=== PATIENT | female | born 1960 | race Caucasian/White ===

== ENCOUNTER → 2020-04-23 | Outpatient (CLI) | payer OTHER ==
[~2020-04-23] MED LIST: REGADENOSON 0.4 MG/5 ML SYRINGE IV ONE
--- NOTE | 2020-04-23 10:56 | ECHOF ---
Referral Reason:R94.31 Abn EKG MEASUREMENTS -------- HEIGHT: 154.9 cm WEIGHT: 82.6 kg BP: 145/83 RVIDd: 2.8 cm (< 3.3) IVSd: 1.1 cm (0.6 - 1.1) LVIDd: 4.0 cm (3.9 - 5.3) LVPWd: 1.1 cm (0.6 - 1.1) IVSs: 1.6 cm LVIDs: 2.7 cm LVPWs: 1.5 cm LA Diam: 2.9 cm (2.7 - 3.8) LAESV Index (A-L): 15.22 ml/m Ao Diam: 3.3 cm (2.0 - 3.7) AV Cusp: 2.0 cm (1.5 - 2.6) MV EXCURSION: 19.523 mm (> 18.000) MV EF SLOPE: 69 mm/s (70 - 150) EPSS: 0.7 cm MV E Tre: 0.58 m/s MV DecT: 370 ms MV A Tre: 0.69 m/s MV E/A Ratio: 0.85 RAP: 5.00 mmHg RVSP: 25.57 mmHg FINDINGS -------- Sinus rhythm. This was a technically adequate study. The left ventricular size is normal. There is borderline concentric left ventricular hypertrophy. Overall left ventricular systolic function is normal with, an EF between 60 - 65 %. The right ventricle is normal in size. Normal LA size by volume 22+/-6 ml/m2. The right atrium is normal in size. Interatrial and interventricular septum intact. The aortic valve is trileaflet and appears structurally normal. The mitral valve is normal. There is trace mitral regurgitation. Mild tricuspid regurgitation present. Right ventricular systolic pressure is normal at < 35 mmHg. Trace/mild (physiologic) pulmonic regurgitation. The aortic root size is normal. Normal inferior vena cava with normal inspiratory collapse consistent with estimated right atrial pre ssure of 5 mmHg. There is no pericardial effusion. CONCLUSIONS -------- 1. Sinus rhythm. 2. The left ventricular size is normal. 3. There is borderline concentric left ventricular hypertrophy. 4. Overall left ventricular systolic function is normal with, an EF between 60 - 65 %. 5. The aortic valve is trileaflet and appears structurally normal. 6. There is trace mitral regurgitation. 7. Mild tricuspid regurgitation present. 8. Right ventricular systolic pressure is normal at < 35 mmHg. 9. Trace/mild (physiologic) pulmonic regurgitation. 10. There is no pericardial effusion. SURFACE WATER TECHNICIAN: Vanna Nicole RDCS
--- NOTE | 2020-04-23 11:54 | P.STRESS ---
- Stress Test Note Stress Test Results/Findings: Exam Performed: NM stress lexiscan cardiolite Exam Date: 04/23/20 Reason for Exam: ABN ECG Height: 5 ft 1 in Weight: 83 kg Protocol: LEXISCAN CARDIOLITE Stage: NA Duration of Exercise: NA Resting Heart Rate: 63 Resting Blood Pressure: 130/85 Maximum Achieved Heart Rate: 95 Maximum Achieved Blood Pressure: 130/85 85% PMHR: 135 100% PMHR: 159 METS: NA Technologist Comment: Stress Test Results/Findings: This is a 60-year-old female with history of hypertension, hypercholesterolemia and smoking history and also COPD being evaluated for cardiac status. Stress data: Blood pressure at rest is 130/85 with pulse rate of 63. EKG at rest showed sinus rhythm without any acute ST-T changes. A standard dose of Lexiscan was infused. EKG did not reveal any significant changes from baseline. Final impression: #1. Negative Lexiscan stress test #2. Report of an echo images to be given by the radiologist.
--- NOTE | 2020-04-23 15:28 | NM ---
EXAMINATION TYPE: NM stress lexiscan cardiolite DATE OF EXAM: 04/23/2020 COMPARISON: NONE HISTORY: 60-year-old female R94.31, abnormal EKG TECHNIQUE: After the intravenous administration of 9.86 mCi Tc 99m Sestamibi - Cardiolite resting SP ECT images acquired 55 minutes post injection. The patient received 0.4mg Lexiscan, 25.2 mCi Tc 99m Sestamibi - Stress images obtained [address] injection FINDINGS: Review of stress and rest SPECT images demonstrates prominent GI activity along the inferior wall. Th ere is decreased perfusion at the apex on rest images suggesting attenuation artifact. No discrete re versibility is identified. Gated analysis shows normal wall motion with an estimated left ventricular ejection fraction of 69 %.TID is calculated at 0.84, within normal limits. IMPRESSION: No scintigraphic evidence for reversible ischemia. Some limitations due to prominent adjacent GI keri fact along the inferior wall.
== END | disposition home or self-care (01) ==
LOC: RADNMMAIN 08:08
PROVIDERS: ATTEND Family Medicine
DX: R94.31 Abnormal electrocardiogram [ECG] [EKG] (principal)
CPT/HCPCS: 93017; 93306; 78452; A9500; J2785

== ENCOUNTER 2020-12-26 18:15 | Emergency (ER) | payer OTHER ==
[2020-12-26 18:55] VITALS: RESP 18
--- NOTE | 2020-12-26 19:18 | XR ---
EXAMINATION TYPE: XR chest 2V DATE OF EXAM: 12/26/2020 COMPARISON: NONE HISTORY: Cough and fever. TECHNIQUE: Frontal and lateral views of the chest are obtained. FINDINGS: There is retrocardiac opacity, compatible with hiatal hernia. There is additional mild lef t basilar opacity. No pleural effusion, or pneumothorax seen. The cardiac silhouette size is within normal limits. The osseous structures are intact. IMPRESSION: Mild bibasilar atelectasis versus infiltrates.
[2020-12-26] MEDS ORDERED: ACETAMINOPHEN TAB 500 MG TAB PO STA (19:56)
[2020-12-26] MEDS ORDERED: dexAMETHasone 4 MG TAB PO STA (20:08)
--- NOTE | 2020-12-26 20:09 | ED ---
General Adult HPI - General Chief complaint: Fever Stated complaint: COUGH AND SOB Time Seen by Provider: 12/26/20 19:55 Source: patient Mode of arrival: ambulatory Limitations: no limitations - History of Present Illness Initial comments: Dictation was produced using [employer] dictation software. please excuse any grammatical, word or spelling errors. This patient was cared for during a federal and state declared state of emergency secondary to Covid 19 Chief Complaint: 60-year-old female past medical history of COPD presents with on and off fever, bodyaches and shortness of breath. History of Present Illness: This 60-year-old female she states she has a past medical history of COPD. She states that for the last 2 weeks she's been having on and off symptoms of fever, myalgias and shortness of breath. She states that she does not know if she was in close contact with anybody with Covid 19. Patient has a history of blood clots. She does have inhalers for her COPD. She was at home with her fianc. The ROS documented in this emergency department record has been reviewed and confirmed by me. Those systems with pertinent positive or negative responses have been documented in the HPI. All other systems are other negative and/or noncontributory. PHYSICAL EXAM: General Impression: Alert and oriented x3, not in acute distress HEENT: Normocephalic atraumatic, extra-ocular movements intact, pupils equal and reactive to light bilaterally, mucous membranes moist. Cardiovascular: Heart regular rate and rhythm Chest: Able to complete full sentences, no retractions, no tachypnea, clear to auscultation bilaterally Abdomen: abdomen soft, non-tender, non-distended, no organomegaly Musculoskeletal: Pulses present and equal in all extremities, no peripheral edema Motor: no focal deficits noted Neurological: CN II-XII grossly intact, no focal motor or sensory deficits noted Skin: Intact with no visualized rashes Psych: Normal affect and mood ED course: 60-year-old female presents with symptoms suspicious for Covid 19. Covid 19 test is positive. Vital signs upon arrival shows tachycardia 102.9. Rest of vital signs within acceptable limits. She is not hypoxic. She does not have any physical exam findings to suggest COPD exacerbation. Patient is a symptomatically for more than 10 days. She does not qualify for monoclonal antibody infusion. Chest x-ray shows mild bibasilar atelectasis versus infiltrates. Laboratory evaluation obtained. CBC, blood panel is unremarkable. Patient's was observed in emergency department for 3 hours. She continues to be non- hypoxic. Patient told to quarantine at home. Return parameters discussed. History of COPD patient was given 10 mg of oral Decadron. - Related Data Allergies Allergy/AdvReac Type Severity Reaction Status Date / Time amoxicillin Allergy Rash/Hives Verified 12/26/20 18:55 Review of Systems ROS Statement: Those systems with pertinent positive or pertinent negative responses have been documented in the HPI. ROS Other: All systems not noted in ROS Statement are negative. Past Medical History Past Medical History: COPD History of Any Multi-Drug Resistant Organisms: None Reported Past Surgical History: Cholecystectomy, Hysterectomy Smoking Status: Former smoker Past Alcohol Use History: None Reported Past Drug Use History: None Reported General Exam Limitations: no limitations Course Vital Signs 12/26/20 12/26/20 12/26/20 18:49 20:54 21:04 Temperature 102.9 F H 102.7 F H Pulse Rate 99 84 Respiratory 18 18 18 Rate Blood Pressure 119/82 129/72 O2 Sat by Pulse 97 94 L Oximetry Medical Decision Making - Lab Data Result diagrams: 12/26/20 20:27 12/26/20 20:27 Lab Results 12/26/20 12/26/20 12/26/20 Range/Units 18:59 20:27 20:27 WBC 3.0 L (3.8-10.6) k/uL RBC 4.86 (3.80-5.40) m/uL Hgb 15.3 (11.4-16.0) gm/dL Hct 44.5 (34.0-46.0) % MCV 91.6 (80.0-100.0) fL MCH 31.5 (25.0-35.0) pg MCHC 34.4 (31.0-37.0) g/dL RDW 12.2 (11.5-15.5) % Plt Count 222 (150-450) k/uL MPV 7.4 Neutrophils % 50 % Lymphocytes % 37 % Monocytes % 10 % Eosinophils % 0 % Basophils % 1 % Neutrophils # 1.5 (1.3-7.7) k/uL Lymphocytes # 1.1 (1.0-4.8) k/uL Monocytes # 0.3 (0-1.0) k/uL Eosinophils # 0.0 (0-0.7) k/uL Basophils # 0.0 (0-0.2) k/uL Sodium 132 L (137-145) mmol/L Potassium 3.8 (3.5-5.1) mmol/L Chloride 98 (98-107) mmol/L Carbon Dioxide 26 (22-30) mmol/L Anion Gap 8 mmol/L BUN 14 (7-17) mg/dL Creatinine 0.91 (0.52-1.04) mg/dL Est GFR (CKD-EPI)AfAm 79 (>60 ml/min/1.73 sqM) Est GFR (CKD-EPI)NonAf 68 (>60 ml/min/1.73 sqM) Glucose 111 H (74-99) mg/dL Calcium 8.4 (8.4-10.2) mg/dL Total Bilirubin 0.4 (0.2-1.3) mg/dL AST 37 H (14-36) U/L ALT 19 (4-34) U/L Alkaline Phosphatase 59 (38-126) U/L Total Protein 6.7 (6.3-8.2) g/dL Albumin 3.8 (3.5-5.0) g/dL Coronavirus (PCR) Detected A (Not Detectd) Disposition Clinical Impression: COVID-19 Disposition: HOME SELF-CARE Condition: Fair Instructions (If sedation given, give patient instructions): Viral Pneumonia (ED) Additional Instructions: Today you were evaluated for symptoms consistent with upper respiratory infection. Today you tested positive for Covid 19. Your are stable for discharge, however it is instructed to to seek immediate medical attention especially if you develop worsening symptoms especially respiratory distress. If possible, try to obtain a pulse oximeter and monitor your oxygen at home. In the meantime please remain in quarantine for 14 days. For any other questions please contact Ramana for here in emergency department or [facility] Department at [phone] Is patient prescribed a controlled substance at d/c from ED?: No Referrals: Kermit Trinidad MD [Primary Care Provider] - 1-2 days Time of Disposition: 21:17
[2020-12-26 20:45] LABS: Basophils % (A) 1 %; Eosinophils % (A) 0 %; HCT 44.5 % (34.0-46.0); HGB 15.3 gm/dL (11.4-16.0); Lymphocytes # (A) 1.1 k/uL (1.0-4.8); Lymphocytes % (A) 37 %; MCH 31.5 pg (25.0-35.0); MCHC 34.4 g/dL (31.0-37.0); MCV 91.6 fL (80.0-100.0); Mean Platelet Volume 7.4; Monocytes # (A) 0.3 k/uL (0-1.0); Monocytes % (A) 10 %; Neutrophils # (A) 1.5 k/uL (1.3-7.7); Neutrophils % (A) 50 %; Platelet Count 222 k/uL (150-450); RBC 4.86 m/uL (3.80-5.40); RDW 12.2 % (11.5-15.5)
[2020-12-26 21:10] LABS: Albumin 3.8 g/dL (3.5-5.0); Calcium 8.4 mg/dL (8.4-10.2); Potassium 3.8 mmol/L (3.5-5.1); Total Bilirubin 0.4 mg/dL (0.2-1.3); Total Protein 6.7 g/dL (6.3-8.2)
[2020-12-26 22:21] VITALS: BP 126/78; PULSE 82; TEMP 102
== END 2020-12-26 22:21 | disposition home or self-care (01) ==
LOC: EC 18:15
DX: U07.1 COVID-19 (principal); J44.9 Chronic obstructive pulmonary disease, unspecified; Z87.891 Personal history of nicotine dependence; Z86.718 Personal history of other venous thrombosis and embolism
CPT/HCPCS: 36415; 80053; 85025; 87635; 71046; 99285; J8540

== ENCOUNTER 2021-01-28 09:23 | Day surgery (SDC) | payer OTHER ==
[2021-01-26 10:43] VITALS: BMI 33.0
[~2021-01-28 09:23] MED LIST changes: +LACTATED RINGERS 1,000 ML IV SCH; -REGADENOSON 0.4 MG/5 ML SYRINGE IV ONE
[2021-01-28 09:59] VITALS: RESP 16; TEMP 96.7
[2021-01-28 10:11] LABS: Glucose,Whole Blood 98 mg/dL (75-99)
[2021-01-28] MEDS ORDERED: LACTATED RINGERS 1,000 ML IV ONE (10:15)
[2021-01-28] MEDS ORDERED: PROPOFOL 10 MG/ML 20 ML VIAL IV ONE (10:32)
--- NOTE | 2021-01-28 11:08 | P.PCN ---
Date of Procedure: 01/28/21 Procedure(s) Performed: BRIEF HISTORY: Patient is a 61-year-old, pleasant, white female scheduled for an upper endoscopy as a part of evaluation of dysphagia to solids for the last several months duration. She has liquid and solid food dysphagia. She denies any weight loss. She has long-standing history of GERD and is on Prilosec 20 mg. PROCEDURE PERFORMED: Esophagogastroduodenoscopy with biopsy. PREOPERATIVE DIAGNOSIS: Progressive dysphagia to solids and liquids of several months duration. IV sedation per anesthesia. PROCEDURE: After informed consent was obtained, the patient was brought into the endoscopy unit. IV sedation was administered by Anesthesia under continuous monitoring. Initially the Olympus GIF-140 video endoscope was inserted into the mouth. Esophagus intubated without any difficulty. It was gradually advanced into the stomach and duodenum and carefully examined. The bulb and the second part of the duodenum appeared normal. The scope at this time was withdrawn to the stomach, adequately insufflated with air, and upon careful examination, mucosa of the antrum, body, cardia and the fundus appeared normal. The scope was then withdrawn into the esophagus. The GE junction was located at 39 cm from the incisors. The esophagus appeared dilated with large amount of retained food noted in the distal esophagus. The esophagus was very tortuous dilated with retained food. The GE junction was somewhat angulated but appeared tight suspicious for esophageal achalasia. The mucosa of the esophagus also had some erosions and biopsies were done from this area. The proximal esophagus appeared normal and the patient tolerated the procedure IMPRESSION: 1. Dilated tortuous esophagus with retained food in in the esophagus and a tight GE junction suspicious for esophageal achalasia 2. Distal esophagus was a tortuous and the GE junction was located at an angle . 3. Mucosa of the distal esophagus had superficial erosions consistent with some esophagitis secondary to retained food RECOMMENDATIONS: The findings of this examination were discussed with the patient as well as a family. She was advised to follow up in office in 3 weeks. His symptoms symptoms we will schedule her for esophageal manometry
[2021-01-28 11:22] VITALS: BP 133/87; PULSE 83
== END 2021-01-28 11:59 | disposition home or self-care (01) ==
LOC: ORWHC2ENDO 09:23
PROVIDERS: ATTEND Internal Medicine Gastroenterology
DX: K21.00 Gastro-esophageal reflux disease with esophagitis, without bleeding (principal); R13.10 Dysphagia, unspecified; E78.5 Hyperlipidemia, unspecified; I10 Essential (primary) hypertension; J44.9 Chronic obstructive pulmonary disease, unspecified; M19.90 Unspecified osteoarthritis, unspecified site; Z79.899 Other long term (current) drug therapy; Z88.1 Allergy status to other antibiotic agents
CPT/HCPCS: 88305; 88312; 43239; J2704

== ENCOUNTER → 2021-02-23 | Day surgery (SDC) | payer OTHER ==
[2021-02-21 10:18] VITALS: BMI 30.6
[2021-02-23 13:20] VITALS: BP 136/87; PULSE 105; RESP 16; TEMP 98.8
== END ==
LOC: ORWHC2ENDO 12:55
PROVIDERS: ATTEND Internal Medicine Gastroenterology
DX: R13.10 Dysphagia, unspecified (principal)
CPT/HCPCS: 91010

== ENCOUNTER → 2021-04-14 | Outpatient (CLI) | payer OTHER ==
--- NOTE | 2021-04-14 11:59 | FL ---
EXAMINATION TYPE: FL barium swallow DATE OF EXAM: 04/14/2021 CLINICAL HISTORY: Dysphagia, history of prior surgery patient is uncertain of type of surgery TECHNIQUE: A double contrast esophagram is performed utilizing air and barium. A total of 1.06 deion nemesio of fluoroscopic time was utilized during procedure and 55 images obtained. COMPARISON: None FINDINGS: There is a possible paraesophageal hernia seen. The distal esophagus is dilated and contains debris a nd is tortuous with multiple focal outpouchings. There is marked delayed emptying of contrast from th e distal esophagus and herniated portion of the stomach into the distal stomach. No definite reflux w as seen. IMPRESSION: Possible periesophageal hernia with dilated tortuous distal esophagus containing debris with multiple focal outpouchings and marked delay of emptying of contrast from the abnormal distal esophagus and h erniated portion of the stomach into the more distal stomach.
== END | disposition home or self-care (01) ==
LOC: RADUSWWP 09:42
PROVIDERS: ATTEND Surgery
DX: R13.10 Dysphagia, unspecified (principal)
CPT/HCPCS: 74220

== ENCOUNTER → 2021-05-24 | Outpatient (CLI) | payer OTHER ==
--- NOTE | 2021-05-24 23:33 | CT ---
EXAMINATION TYPE: CT chest abdomen w con DATE OF EXAM: 05/24/2021 COMPARISON: 02/18/2014 CT chest HISTORY: H/O HIATAL HERNIA CT DLP: 375.9 mGycm. Automated Exposure Control for Dose Reduction was Utilized. CONTRAST: CT scan of the thorax, abdomen and pelvis is performed with IV Contrast, patient injected with 80 mL of Isovue 300. FINDINGS: LUNGS: There are very mild nonspecific scattered groundglass opacities of the bilateral lungs. There is no pleural effusion or pneumothorax seen. The tracheobronchial tree is patent. MEDIASTINUM: There is circumferential thickening of the mid and distal esophagus. There is air-fluid level in the proximal esophagus. There is a moderate hiatal hernia which is increased in size versus 2014 comparison. No axillary, mediastinal, or hilar lymphadenopathy. Cardiac size is normal. Small pe ricardial effusion. LIVER: There is a peripheral curvilinear region of liver hyperenhancement (4:48, 8:32), with either l iver retraction or diaphragmatic slip indenting the liver capsule. BILIARY/GB: Status post cholecystectomy. Common bile duct is prominent, within normal limits for post cholecystectomy state. PANCREAS: Normal. SPLEEN: Normal in size, heterogenous in appearance due to phase of contrast. ADRENALS: Normal. KIDNEYS: Normal. BOWEL: Visualized bowel loops demonstrate no evidence of obstruction or thickening. There is marked c olonic diverticulosis with no acute diverticulitis. LYMPH NODES: No abdominal lymphadenopathy. OSSEOUS STRUCTURES: No acute osseous abnormality. OTHER: No pneumoperitoneum or ascites. IMPRESSION: 1. Moderate hiatal hernia, increased in size versus 2013 comparison. 2. Circumferential thickening of the mid and distal esophagus, with fluid throughout the esophagus. Findings may represent esophagitis and gastroesophageal reflux. Recommend correlation with EGD. 3. Peripheral curvilinear hyperenhancement of the right liver dome laterally with either liver retra ction or diaphragmatic slip indenting the liver capsule. Findings may represent transient hepatic att enuation difference versus mass such as cholangiocarcinoma. MRI of the liver with liver mass protocol is recommended. 4. Mild nonspecific scattered groundglass opacities may represent infectious or inflammatory pneumon itis.
== END | disposition home or self-care (01) ==
LOC: RADCTMAIN 17:37
PROVIDERS: ATTEND Family Medicine
DX: K44.9 Diaphragmatic hernia without obstruction or gangrene (principal); R91.8 Other nonspecific abnormal finding of lung field
CPT/HCPCS: 82565; 84520; 71260; 74160; 36415; Q9967

== ENCOUNTER 2021-05-25 09:15 | Day surgery (SDC) | payer OTHER ==
[2021-05-24 12:19] VITALS: BMI 23.8
[~2021-05-25 09:15] MED LIST changes: +CYCLOPENTOLATE 1% OPHTH SOLN 2 ML BTL OP PRN; +MOXIFLOXACIN HCL 0.5% DROPS 3 ML BTL OP PRN; +PHENYLEPHRINE 2.5% OPHTH DRP 2ML OP PRN; +PILOCARPINE 2% OPHTH DROPS 15 ML BTL OP PRN; +TETRACAINE 0.5% OPHTH (PF) DROPS 4 ML BTL OP PRN; +TIMOLOL 0.5% OPHTH DROPS 5 ML BTL OP PRN; +TOBRA-DEXAMET 0.3-0.1% OPHTH DROPS 2.5 ML BTL OPHTHALMIC PRN
[2021-05-25 10:48] VITALS: TEMP 97.2
[2021-05-25 11:02] LABS: Glucose,Whole Blood 100 mg/dL (75-99)
[2021-05-25] MEDS ORDERED: fentaNYL (PF) 50 MCG/ML 2 ML AMP ONE (11:06)
[2021-05-25] MEDS ORDERED: MIDAZOLAM 2 MG/2 ML VIAL ONE (11:06)
[2021-05-25] MEDS ORDERED: EPINEPHrine (PF) 0.3 ML in BALANCED SALT IRRIG SOLN COMB2 500 ML IRRIGATION ONE (11:14)
[2021-05-25] MEDS ORDERED: BALANCED SALT IRRIG SOLN COMB2 15 ML IRRIG.SOLN INTRAOCULA ONE (11:16)
[2021-05-25] MEDS ORDERED: HYALURONATE SODIUM INTRAOCULAR 1 EACH SYRINGE (12MG/ML) INTRAOCULA ONE (11:16)
[2021-05-25] MEDS ORDERED: LIDOCAINE 1% (PF) 10MG/ML VIAL MISCELLANE ONE (11:17)
--- NOTE | 2021-05-25 11:31 | P.OP ---
Date of Procedure: 05/25/21 Preoperative Diagnosis: NS & CS Postoperative Diagnosis: same Procedure(s) Performed: PIOL, OD Implants: [id number] 22.50 Anesthesia: MAC Surgeon: Yared Edwards Pathology: none sent Condition: stable Disposition: same day Indications for Procedure: blurry vision Operative Findings: no complications
[2021-05-25 11:42] VITALS: RESP 16
[2021-05-25 12:18] VITALS: BP 108/64; PULSE 64
--- NOTE | 2021-05-26 09:13 | OP ---
OPERATIVE REPORT DATE OF SURGERY: May 25, 2021 PROCEDURES: Phacoemulsification of cataract and intraocular lens implant of the right eye. PREOPERATIVE DIAGNOSES: Nuclear sclerosis. Cortical sclerosis. SURGEON: Dr. Yared Edwards. OPERATION: Clear cornea phacoemulsification of cataract right OD eye. ESTIMATED BLOOD LOSS: Zero. SPECIMEN TAKEN: None. NARRATIVE: After obtaining the appropriate consent, the patient was brought to the Operating Room where the patient was placed under cardiac monitoring and prepped and draped in the usual sterile manner. At the 11 o'clock position a 15 degree super sharp blade was used to create a paracentesis followed by instillation of 1% Xylocaine MPF 50:50 mix with BSS into the anterior chamber. This was followed by Amvisc to stabilize the anterior chamber. At the 9 o'clock position a self-sealing corneal flap incision was created using 2.8 mm elle keratome. A cystotome was used to initiate a continuous tear capsulorrhexis which was completed with the Utrata forceps. A Binkhorst cannula was used to hydrodissect the lens nucleus followed by hydrodelineation. Phacoemulsification of the lens was performed utilizing phacochop in 7.32 seconds at 10% power. The remaining cortical material was removed using the irrigation aspiration mode followed by additional 1% Xylocaine MPF into the anterior chamber followed by viscoelastic to stabilize the capsular bag. A [employer] MX 60E 22.0 diopter posterior chamber lens was placed into the capsular bag without difficulty. The remaining viscoelastic material was removed from the anterior chamber with the irrigation/aspiration. Balanced salt solution was used to normalize the intraocular pressure. The incision was checked for watertight integrity. The patient then received two drops of 0.5% timolol followed by two drops Vigamox, was lightly patched and shielded in the usual manner. There were no complications from the procedure. The patient tolerated the procedure well and was returned to recovery in good condition. MMODL / IJN: [id number] /
== END 2021-05-25 12:37 | disposition home or self-care (01) ==
LOC: OR 09:15
PROVIDERS: ATTEND Ophthalmology
DX: H25.11 Age-related nuclear cataract, right eye (principal); H25.011 Cortical age-related cataract, right eye; H33.301 Unspecified retinal break, right eye; H25.12 Age-related nuclear cataract, left eye; H25.012 Cortical age-related cataract, left eye; Z88.5 Allergy status to narcotic agent; Z79.899 Other long term (current) drug therapy; F41.9 Anxiety disorder, unspecified; F32.9 Major depressive disorder, single episode, unspecified; K21.9 Gastro-esophageal reflux disease without esophagitis; I10 Essential (primary) hypertension; J44.9 Chronic obstructive pulmonary disease, unspecified; E78.5 Hyperlipidemia, unspecified; E11.9 Type 2 diabetes mellitus without complications
CPT/HCPCS: 66984; C1780; J2250; J0171; J3010; J2001

== ENCOUNTER 2021-07-13 06:56 | Day surgery (SDC) | payer OTHER ==
[2021-07-12 09:11] VITALS: BMI 24.9
[~2021-07-13 06:56] MED LIST changes: -CYCLOPENTOLATE 1% OPHTH SOLN 2 ML BTL OP PRN; -LACTATED RINGERS 1,000 ML IV SCH; -PHENYLEPHRINE 2.5% OPHTH DRP 2ML OP PRN; -PILOCARPINE 2% OPHTH DROPS 15 ML BTL OP PRN; -TOBRA-DEXAMET 0.3-0.1% OPHTH DROPS 2.5 ML BTL OPHTHALMIC PRN
[2021-07-13] MEDS ORDERED: LIDOCAINE 1% (10MG/ML) FOR IV START INTRADERMA PRN (07:21)
[2021-07-13] MEDS ORDERED: LACTATED RINGERS 1,000 ML IV SCH (07:21)
[2021-07-13] MEDS: CYCLOPENTOLATE 1% OPHTH SOLN 2 ML BTL OP PRN ×3 (07:35→07:47)
[2021-07-13] MEDS: PHENYLEPHRINE 2.5% OPHTH DRP 2ML OP PRN ×3 (07:38→07:50)
[2021-07-13 07:39] VITALS: TEMP 98.2
[2021-07-13 07:53] LABS: Glucose,Whole Blood 87 mg/dL (75-99)
[2021-07-13] MEDS ORDERED: MIDAZOLAM 2 MG/2 ML VIAL ONE (08:20)
[2021-07-13] MEDS ORDERED: fentaNYL (PF) 50 MCG/ML 2 ML AMP ONE (08:20)
[2021-07-13] MEDS ORDERED: DUOVISC KIT (GREEN BOX) INTRAOCULA ONE (08:42)
[2021-07-13] MEDS ORDERED: BALANCED SALT IRRIG SOLN COMB2 15 ML IRRIG.SOLN IRRIGATION ONE (08:42)
[2021-07-13] MEDS ORDERED: EPINEPHrine (PF) 0.3 ML in BALANCED SALT IRRIG SOLN COMB2 500 ML IRRIGATION ONE (08:42)
[2021-07-13] MEDS ORDERED: LIDOCAINE 1% (PF) 10MG/ML VIAL MISCELLANE ONE (08:43)
--- NOTE | 2021-07-13 08:54 | P.OP ---
Date of Procedure: 07/13/21 Preoperative Diagnosis: NS & CS Postoperative Diagnosis: same Procedure(s) Performed: PIOL< OS Implants: MX60E 23.00 Anesthesia: MAC Surgeon: Yared Edwards Pathology: none sent Condition: stable Disposition: same day Indications for Procedure: blurry vision Operative Findings: no complications
[2021-07-13 09:15] VITALS: BP 115/77; PULSE 58; RESP 16
--- NOTE | 2021-07-13 21:09 | OP ---
OPERATIVE REPORT DATE OF SERVICE: July 13, 2021 PROCEDURE: Phacoemulsification cataract and intraocular lens implant of the left eye. SURGEON: Dr. Yared Edwards. PREOPERATIVE DIAGNOSIS: Nuclear sclerosis. Cortical sclerosis. POSTOPERATIVE DIAGNOSIS: Nuclear sclerosis. Cortical sclerosis. OPERATION: Clear. Cornea phacoemulsification of cataract left/OS eye. ESTIMATED BLOOD LOSS: Zero. SPECIMEN TAKEN: None. NARRATIVE: After obtaining the appropriate consent, the patient was brought to the Operating Room where the patient was placed under cardiac monitoring and prepped and draped in the usual sterile manner. At the 5 o'clock position a 15 degree super sharp blade was used to create a paracentesis followed by instillation of 1% Xylocaine MPF 50:50 mix with BSS into the anterior chamber. This was followed by Amvisc to stabilize the anterior chamber. At the 3 o'clock position a self-sealing corneal flap incision was created using 2.8 mm elle keratome. A cystotome was used to initiate a continuous tear capsulorrhexis which was completed with the Utrata forceps. A Binkhorst cannula was used to hydrodissect the lens nucleus followed by hydrodelineation. Phacoemulsification of the lens was performed utilizing phacochop in 7.24 seconds at an EPT of 00.89. The remaining cortical material was removed using the irrigation aspiration mode followed by additional 1% Xylocaine MPF into the anterior chamber followed by viscoelastic to stabilize the capsular bag. A [employer] MX 60E 23.4 diopter posterior chamber lens was placed into the capsular bag without difficulty. The remaining viscoelastic material was removed from the anterior chamber with the irrigation/aspiration. Balanced salt solution was used to normalize the intraocular pressure. The incision was checked for watertight integrity. The patient then received two drops of 0.5% timolol followed by two drops Vigamox, was lightly patched and shielded in the usual manner. There were no complications from the procedure. The patient tolerated the procedure well and was returned to recovery in good condition. MMODL / IJN: [id number] /
== END 2021-07-13 09:33 | disposition home or self-care (01) ==
LOC: OR 06:56
PROVIDERS: ATTEND Ophthalmology
DX: H25.12 Age-related nuclear cataract, left eye (principal); H25.012 Cortical age-related cataract, left eye; E11.36 Type 2 diabetes mellitus with diabetic cataract; H33.301 Unspecified retinal break, right eye; Z98.41 Cataract extraction status, right eye; Z96.1 Presence of intraocular lens; F32.9 Major depressive disorder, single episode, unspecified; K21.9 Gastro-esophageal reflux disease without esophagitis; Z90.49 Acquired absence of other specified parts of digestive tract; Z90.710 Acquired absence of both cervix and uterus; Z98.890 Other specified postprocedural states; Z82.5 Family history of asthma and other chronic lower respiratory diseases; Z82.61 Family history of arthritis; Z83.79 Family history of other diseases of the digestive system; Z87.891 Personal history of nicotine dependence; Z79.1 Long term (current) use of non-steroidal anti-inflammatories (NSAID); Z79.899 Other long term (current) drug therapy; Z88.5 Allergy status to narcotic agent; Z88.0 Allergy status to penicillin
CPT/HCPCS: 66984; C1780; J2250; J0171; J3010; J2001

== ENCOUNTER → 2021-08-19 | Outpatient (CLI) | payer OTHER ==
--- NOTE | 2021-08-19 08:42 | MR ---
EXAMINATION TYPE: MR liver wo/w con DATE OF EXAM: 08/19/2021 COMPARISON: CT May 24, 2021. Older chest CTs February 18, 2014. HISTORY: Abnormal CT, liver mass CONTRAST: Standard multiplanar, multisequence MRI departmental protocol images were obtained without contrast a nd with 7 mL intravenous Gadavist gadolinium contrast. Imaging performed of the abdomen focusing on t he liver. FINDINGS: Liver: Liver remains normal in size. No diffuse signal dropout identified to suggest marked fatty inf iltration. No surrounding ascites. There is no concerning solid or cystic mass identified on MRI. The areas of concern on CT vague peripheral hypodense areas become isodense on delayed phase imaging. Si milar finding is noted on review of CT thorax from 2013. Finding is consistent with transient hepatic attenuation difference. Our initial hepatic arterial phase image shows less prominent but similar fi nding in the right hepatic dome image 76 series 1001 but this is less prominent as there is already c ontrast filling the portal veins being more delayed than desired. The gallbladder appears within norm al limits. No biliary dilatation identified. Other: Redemonstration of eccentric diverticulum or debris-filled outpouching from the distal esophag us occupying the medial left lung base above surgical change at the diaphragm measuring approximately 5.6 x 4.8 x 5.0 cm. The spleen, pancreas, and both adrenal glands appear within normal limits. There is no concerning jan al mass or hydronephrosis. Diverticula throughout the sigmoid colon are redemonstrated. No suspicious bowel dilatation. Visualized osseous structures are intact. No intra-abdominal ascites or adenopathy . IMPRESSION: 1. No worrisome intrahepatic mass on dynamic MRI imaging. CT findings consistent with transient hepat ic attenuation difference confirmed. 2. Large debris-filled outpouching or diverticulum from the distal esophagus redemonstrated is stable and above the site of prior surgery at the diaphragm level.
== END ==
LOC: RADMRIMAIN 07:11
PROVIDERS: ATTEND Family Medicine
DX: K57.30 Diverticulosis of large intestine without perforation or abscess without bleeding (principal)
CPT/HCPCS: 74183; A9585

== ENCOUNTER → 2022-04-21 | Outpatient (CLI) | payer OTHER ==
--- NOTE | 2022-04-21 15:56 | CT ---
EXAMINATION TYPE: CT ChestAbdPelvis wo/w con CT DLP: 966 mGycm, Automated exposure control for dose reduction was used. DATE OF EXAM: 04/21/2022 3:37 PM COMPARISON: CT chest abdomen pelvis 01/22/2021. CLINICAL INDICATION:Female, 62 years old with history of hiatal hernia; Technique: Multiple axial images of the chest, abdomen, and pelvis were obtained for and after the in travenous administration of 100 mL Isovue-300. Oral contrast was administered. Two-dimensional jimenez l and sagittal reconstructions were obtained. Findings: CHEST: LUNGS/ PLEURA: Marginal decrease in nonspecific scattered groundglass opacities within the right uppe r lobe. No new or enlarging pulmonary nodules. No pneumothorax or pleural effusion. AIRWAY: Patent and unremarkable.. HEART: Size within normal limits. No pericardial effusion. MEDIASTINUM: No gross evidence of adenopathy. Circumferential thickening of the mid and distal esopha newton redemonstrated. Air-fluid level in the proximal esophagus. Moderate hiatal hernia which is unchan ged from most recent examination in 2020. VASCULATURE: No aortic aneurysm. MUSCULOSKELETAL: No acute osseous abnormalities. SOFT TISSUES/LYMPH NODES: Unremarkable. LOWER NECK: No significant findings. ABDOMEN: ABDOMEN LIVER: Unremarkable GALLBLADDER AND BILE DUCTS: Postcholecystectomy. Mild extrahepatic biliary ductal dilatation which is not unexpected in the setting of cholecystectomy. PANCREAS: Unremarkable. SPLEEN: Unremarkable. ADRENAL GLANDS: Unremarkable. KIDNEYS AND URETERS: No evidence of hydronephrosis or renal calculus. The ureters are unremarkable. PELVIS BLADDER: Unremarkable REPRODUCTIVE: The uterus is surgically absent. ABDOMEN & PELVIS STOMACH AND BOWEL: Diverticulosis of the second portion the duodenum. Colonic diverticulosis of the d escending and sigmoid colon without evidence for acute diverticulitis. The appendix is within normal limits. No evidence of bowel obstruction. PERITONEUM: No evidence of pneumoperitoneum or free fluid. VASCULATURE: No evidence of aortic aneurysm. MUSCULOSKELETAL: No acute osseous abnormalities LYMPH NODES: No gross evidence for lymphadenopathy. SOFT TISSUE/ABDOMINAL WALL: Unremarkable IMPRESSION: * Moderate hiatal hernia is redemonstrated and not significantly changed from most recent examinatio n 2020. * Similar sequential thickening of the mid and distal esophagus with fluid/contrast throughout the e sophagus. This may represents esophagitis and gastroesophageal reflux. This can be further evaluated with EGD as clinically indicated. * Moderate decrease in nonspecific scattered ground glass opacities within the right upper lobe whic h may represent infectious/inflammatory process.
== END | disposition home or self-care (01) ==
LOC: RADCTMAIN 13:31
PROVIDERS: ATTEND Surgery
DX: K44.9 Diaphragmatic hernia without obstruction or gangrene (principal); K21.9 Gastro-esophageal reflux disease without esophagitis
CPT/HCPCS: 82565; 84520; 71270; 74178; 36415; Q9967

== ENCOUNTER 2023-03-28 16:23 | Emergency (ER) | payer OTHER ==
--- NOTE | 2023-03-28 17:19 | XR ---
EXAMINATION TYPE: XR chest 2V DATE OF EXAM: 03/28/2023 COMPARISON: 12/26/2020 HISTORY: Shortness of breath TECHNIQUE: Frontal and lateral views of the chest are obtained. FINDINGS: Scattered senescent parenchymal changes noted. Hyperinflation compatible with COPD. No evidence for infiltrate. No evidence for atelectasis. Heart size is stable. Fixed hiatal hernia redemonstrated. Mediastinal structures are stable and grossly unremarkable. No evidence for hilar prominence. Degenerative changes dorsal spine. IMPRESSION: 1. No evidence for acute pulmonary disease.
--- NOTE | 2023-03-28 19:49 | ED ---
General Adult HPI - General Chief complaint: Shortness of Breath Stated complaint: sob-sent by Drs Time Seen by Provider: 03/28/23 19:24 Source: patient Mode of arrival: wheelchair Limitations: physical limitation - History of Present Illness Initial comments: 63-year-old female with history of COPD, diabetes, hypertension, hyperlipidemia presenting with chief complaint of low oxygen levels. Patient states that she was at home, was feeling short of breath, she checked her pulse ox and reports that her oxygen was ranging from 50-80. When asked to show which number she was looking at she pointed to the pulse. She denies chest pain, fever, chills, cough, congestion, sore throat, abdominal pain, nausea, vomiting, dizziness. Her oxygen is 97% on room air during her visit. - Related Data Home Medications Medication Instructions Recorded Confirmed Albuterol Sulfate [Proair Hfa] 2 puff INHALATION RT-Q6H PRN 01/26/21 03/28/23 Ipratropium/Albuterol Sulfate 1 puff INHALATION RT-QID PRN 01/26/21 03/28/23 [Combivent Respimat Inhaler] amLODIPine [Norvasc] 5 mg PO DAILY 01/26/21 03/28/23 Oxybutynin Chloride [Ditropan XL] 5 mg PO DAILY 06/14/21 03/28/23 Atorvastatin [Lipitor] 40 mg PO DAILY 03/28/23 03/28/23 Ipratropium-Albuterol Nebulize 3 ml INHALATION RT-QID 03/28/23 03/28/23 [Duoneb 0.5 mg-3 mg/3 ml Soln] Loratadine [Claritin] 10 mg PO DAILY 03/28/23 03/28/23 Montelukast [Singulair] 10 mg PO DAILY 03/28/23 03/28/23 Omeprazole 40 mg PO HS 03/28/23 03/28/23 clindamycin HCL [Cleocin] 300 mg PO TID 03/28/23 03/28/23 cloNIDine [Catapres-TTS 0.2 mg] 0.2 mg TRANSDERM FR 03/28/23 03/28/23 Allergies Allergy/AdvReac Type Severity Reaction Status Date / Time amoxicillin Allergy Rash/Hives Verified 03/28/23 20:06 codeine AdvReac "out of Verified 03/28/23 20:06 it" FEELING Review of Systems ROS Statement: Those systems with pertinent positive or pertinent negative responses have been documented in the HPI. ROS Other: All systems not noted in ROS Statement are negative. Past Medical History Past Medical History: Asthma, COPD, Diabetes Mellitus, Eye Disorder, GERD/Reflux, Hyperlipidemia, Hypertension, Osteoarthritis (OA), Prostate Disorder Additional Past Medical History / Comment(s): Hx "Covid 12/26/20, fully recovered". "Borderline Diabetic", has lost 60 lbs due to hiatal hernia & possibly other kind of hernia-can't eat solids or they come back up or feels like food "sits in throat & can't breathe"-referred to a surgeon @[facility],Bursitis in hips,CATARACT History of Any Multi-Drug Resistant Organisms: None Reported Past Surgical History: Cholecystectomy, Hysterectomy, Orthopedic Surgery Additional Past Surgical History / Comment(s): Left hand, left shoulder surgery, Colonoscopy, EGD. CATARACT SURGERY RIGHT KNEE, cataract surgery R eye. Past Anesthesia/Blood Transfusion Reactions: No Reported Reaction Past Psychological History: Anxiety, Depression Smoking Status: Former smoker - Past Family History Mother Family Medical History: Cancer Additional Family Medical History / Comment(s): Leukemia. Sister(s) Family Medical History: Cancer Additional Family Medical History / Comment(s): Sister #1 -Leukemia, sister #2 - breast cancer. General Exam General appearance: alert, in no apparent distress Head exam: Present: atraumatic, normocephalic, normal inspection Eye exam: Present: normal appearance, EOMI. Absent: scleral icterus, periorbital swelling Neck exam: Present: normal inspection, full ROM Respiratory exam: Present: normal lung sounds bilaterally. Absent: respiratory distress, wheezes, rales, rhonchi, stridor Cardiovascular Exam: Present: regular rate, normal rhythm, normal heart sounds. Absent: systolic murmur, diastolic murmur, rubs, gallop, clicks Neurological exam: Present: alert, oriented X3, CN II-XII intact Psychiatric exam: Present: normal affect, normal mood Skin exam: Present: warm, dry, intact, normal color. Absent: rash Course Vital Signs 03/28/23 03/28/23 03/28/23 16:29 19:56 21:08 Temperature 98.4 F 97.8 F Pulse Rate 71 74 75 Respiratory 18 11 L 18 Rate Blood Pressure 159/81 147/94 129/90 O2 Sat by Pulse 98 99 97 Oximetry EKG Findings - EKG Comments: EKG Findings:: Sinus rhythm ventricular rate 73. W[place] interval 134. QRS 94. QT 373. QTC 399. No ischemic changes. Medical Decision Making - Medical Decision Making Was pt. sent in by a medical professional or institution (, PA, CLERICAL ASSIGNER, urgent care, hospital, or detention...) When possible be specific @ -Sent by PCP Did you speak to anyone other than the patient for history (EMS, parent, family, police, friend...)? What history was obtained from this source @ - at bedside Did you review nursing and triage notes (agree or disagree)? Why? @ -I reviewed and agree with nursing and triage notes Were old charts reviewed (outside hosp., previous admission, EMS record, old EKG, old radiological studies, urgent care reports/EKG's, detention records)? Report findings @ -No old charts were reviewed Differential Diagnosis (chest pain, altered mental status, abdominal pain women, abdominal pain men, vaginal bleeding, weakness, fever, dyspnea, syncope, headache, dizziness, GI bleed, back pain, seizure, CVA, palpatations, mental health, musculoskeletal)? @ -MDM Differential Dyspnea: Coronary syndrome, arrhythmia, tamponade, asthma, COPD, pulmonary embolism, pneumonia, pneumothorax, pulmonary effusion, anaphylaxis, diabetic ketoacidosis, flailed chest, pulmonary contusion, diaphragmatic rupture, anemia, neuromuscular this is not meant to be an all-inclusive list. EKG interpreted by me (3pts min.). @ -As above X-rays interpreted by me (1pt min.). @ -Chest x-ray shows no acute process CT interpreted by me (1pt min.). @ -None done U/S interpreted by me (1pt. min.). @ -None done What testing was considered but not performed or refused? (CT, X-rays, U/S, labs)? Why? @ -None What meds were considered but not given or refused? Why? @ -None Did you discuss the management of the patient with other professionals (professionals i.e. , EVER, CLERICAL ASSIGNER, lab, RT, psych nurse, social studies teacher, spindle repairer, teacher, credit review officer, spring encaser)? Give summary @ -No Was smoking cessation discussed for >3mins.? @ -No Was critical care preformed (if so, how long)? @ -No Were there social determinants of health that impacted care today? How? (Homelessness, low income, unemployed, alcoholism, drug addiction, transportation, low edu. Level, literacy, decrease access to med. care, shelter, rehab)? @ -No Was there de-escalation of care discussed even if they declined (Discuss DNR or withdrawal of care, Hospice)? DNR status @ -No What co-morbidities impacted this encounter? (DM, HTN, Smoking, COPD, CAD, Cancer, CVA, ARF, Chemo, Hep., AIDS, mental health diagnosis, sleep apnea, morbid obesity)? @ -None Was patient admitted / discharged? Hospital course, mention meds given and route, prescriptions, significant lab abnormalities, going to OR and other pertinent info. @ -63-year-old female presenting with chief complaints of low oxygen. She states that her pulse ox at home read that her oxygen level ranged from 50-80, and during that time patient was experiencing shortness of breath. When the patient showed me which number she was looking at she was pointing at her pulse. I explained to the patient which number represents the pulse which represents the oxygen level. Patient is a 97% on room air here in the ER. Lab work is grossly negative. EKG and chest x-ray showed no acute process. I believe the patient may has been anxious believing that her oxygen level was 80% her lower which caused worsening dyspnea. She showing no signs of respiratory distress here in the ER. She is educated on today's findings and on proper use of pulse ox at home. Follow-up with PCP. Report back to ER with any new or worsening symptoms. Discussed return parameters and answered all questions. Patient conveyed verbal understanding and agreed to the plan. I discussed this case in detail with my attending Dr. Rosales Undiagnosed new problem with uncertain prognosis? @ -No Drug Therapy requiring intensive monitoring for toxicity (Heparin, Nitro, Insulin, Cardizem)? @ -No Were any procedures done? @ -No Diagnosis/symptom? @ -Dyspnea Acute, or Chronic, or Acute on Chronic? @ -acute Uncomplicated (without systemic symptoms) or Complicated (systemic symptoms)? @ -Uncomplicated Side effects of treatment? @ -No Exacerbation, Progression, or Severe Exacerbation? @ -No Poses a threat to life or bodily function? How? (Chest pain, [place], [place], pneumonia, PE, COPD, DKA, ARF, appy, cholecystitis, CVA, Diverticulitis, Homicidal, Suicidal, threat to staff... and all critical care pts) @ -No - Lab Data Result diagrams: 03/28/23 19:44 03/28/23 19:44 Lab Results 03/28/23 03/28/23 03/28/23 Range/Units 19:44 19:44 19:44 WBC 6.2 (3.8-10.6) k/uL RBC 4.60 (3.80-5.40) m/uL Hgb 14.2 (11.4-16.0) gm/dL Hct 43.0 (34.0-46.0) % MCV 93.4 (80.0-100.0) fL MCH 31.0 (25.0-35.0) pg MCHC 33.2 (31.0-37.0) g/dL RDW 12.4 (11.5-15.5) % Plt Count 302 (150-450) k/uL MPV 7.7 Neutrophils % 49 % Lymphocytes % 41 % Monocytes % 5 % Eosinophils % 5 % Basophils % 0 % Neutrophils # 3.0 (1.3-7.7) k/uL Lymphocytes # 2.5 (1.0-4.8) k/uL Monocytes # 0.3 (0-1.0) k/uL Eosinophils # 0.3 (0-0.7) k/uL Basophils # 0.0 (0-0.2) k/uL PT 11.1 (9.0-12.0) sec INR 1.1 (<1.2) APTT 26.0 (22.0-30.0) sec Sodium 140 (137-145) mmol/L Potassium 4.2 (3.5-5.1) mmol/L Chloride 105 (98-107) mmol/L Carbon Dioxide 27 (22-30) mmol/L Anion Gap 8 mmol/L BUN 13 (7-17) mg/dL Creatinine 0.82 (0.52-1.04) mg/dL Est GFR (CKD-EPI)AfAm 88 (>60 ml/min/1.73 sqM) Est GFR (CKD-EPI)NonAf 76 (>60 ml/min/1.73 sqM) Glucose 105 H (74-99) mg/dL Calcium 8.9 (8.4-10.2) mg/dL Total Bilirubin 0.8 (0.2-1.3) mg/dL AST 33 (14-36) U/L ALT 23 (4-34) U/L Alkaline Phosphatase 70 (38-126) U/L Troponin I (0.000-0.034) ng/mL NT-Pro-B Natriuret Pep pg/mL Total Protein 7.2 (6.3-8.2) g/dL Albumin 4.2 (3.5-5.0) g/dL 03/28/23 03/28/23 Range/Units 19:44 19:44 WBC (3.8-10.6) k/uL RBC (3.80-5.40) m/uL Hgb (11.4-16.0) gm/dL Hct (34.0-46.0) % MCV (80.0-100.0) fL MCH (25.0-35.0) pg MCHC (31.0-37.0) g/dL RDW (11.5-15.5) % Plt Count (150-450) k/uL MPV Neutrophils % % Lymphocytes % % Monocytes % % Eosinophils % % Basophils % % Neutrophils # (1.3-7.7) k/uL Lymphocytes # (1.0-4.8) k/uL Monocytes # (0-1.0) k/uL Eosinophils # (0-0.7) k/uL Basophils # (0-0.2) k/uL PT (9.0-12.0) sec INR (<1.2) APTT (22.0-30.0) sec Sodium (137-145) mmol/L Potassium (3.5-5.1) mmol/L Chloride (98-107) mmol/L Carbon Dioxide (22-30) mmol/L Anion Gap mmol/L BUN (7-17) mg/dL Creatinine (0.52-1.04) mg/dL Est GFR (CKD-EPI)AfAm (>60 ml/min/1.73 sqM) Est GFR (CKD-EPI)NonAf (>60 ml/min/1.73 sqM) Glucose (74-99) mg/dL Calcium (8.4-10.2) mg/dL Total Bilirubin (0.2-1.3) mg/dL AST (14-36) U/L ALT (4-34) U/L Alkaline Phosphatase (38-126) U/L Troponin I <0.012 (0.000-0.034) ng/mL NT-Pro-B Natriuret Pep 122 pg/mL Total Protein (6.3-8.2) g/dL Albumin (3.5-5.0) g/dL Disposition Clinical Impression: Dyspnea Disposition: HOME SELF-CARE Condition: Good Instructions (If sedation given, give patient instructions): Dyspnea (ED) Additional Instructions: Follow-up with PCP. Report back to ER with any new or worsening symptoms. Is patient prescribed a controlled substance at d/c from ED?: No Referrals: Kermit Trinidad MD [Primary Care Provider] - 1-2 days Time of Disposition: 20:53
[2023-03-28 19:58] VITALS: TEMP 97.8
[2023-03-28 20:01] LABS: Basophils % (A) 0 %; Eosinophils # (A) 0.3 k/uL (0-0.7); Eosinophils % (A) 5 %; HGB 14.2 gm/dL (11.4-16.0); Lymphocytes # (A) 2.5 k/uL (1.0-4.8); Lymphocytes % (A) 41 %; MCHC 33.2 g/dL (31.0-37.0); MCV 93.4 fL (80.0-100.0); Mean Platelet Volume 7.7; Monocytes # (A) 0.3 k/uL (0-1.0); Monocytes % (A) 5 %; Neutrophils % (A) 49 %; Platelet Count 302 k/uL (150-450); RDW 12.4 % (11.5-15.5); WBC 6.2 k/uL (3.8-10.6)
[2023-03-28 20:10] LABS: INR 1.1 (<1.2); Prothrombin Time 11.1 sec (9.0-12.0)
[2023-03-28 20:16] LABS: ALT 23 U/L (4-34); AST 33 U/L (14-36); African American GFR (CKD) 88 (>60 ml/min/1.73 sqM); Albumin 4.2 g/dL (3.5-5.0); Alkaline Phosphatase 70 U/L (38-126); Anion Gap 8 mmol/L; Blood Urea Nitrogen 13 mg/dL (7-17); Calcium 8.9 mg/dL (8.4-10.2); Carbon Dioxide 27 mmol/L (22-30); Chloride 105 mmol/L (98-107); Glucose 105 mg/dL (74-99); Non-African American GFR(CKD) 76 (>60 ml/min/1.73 sqM); Potassium 4.2 mmol/L (3.5-5.1); Sodium 140 mmol/L (137-145); Total Bilirubin 0.8 mg/dL (0.2-1.3); Total Protein 7.2 g/dL (6.3-8.2)
[2023-03-28 21:10] VITALS: BP 129/90; PULSE 75; RESP 18
== END 2023-03-28 21:10 | disposition home or self-care (01) ==
LOC: EC 16:23
DX: R06.00 Dyspnea, unspecified (principal); J44.9 Chronic obstructive pulmonary disease, unspecified; E11.9 Type 2 diabetes mellitus without complications; K21.9 Gastro-esophageal reflux disease without esophagitis; E78.5 Hyperlipidemia, unspecified; I10 Essential (primary) hypertension; M19.90 Unspecified osteoarthritis, unspecified site; F41.9 Anxiety disorder, unspecified; F32.A Depression, unspecified; Z87.891 Personal history of nicotine dependence; Z88.5 Allergy status to narcotic agent; Z88.1 Allergy status to other antibiotic agents; Z79.899 Other long term (current) drug therapy
CPT/HCPCS: 36415; 71046; 80053; 83880; 84484; 85025; 85610; 85730; 93005; 99285